=== PATIENT | male | born 1985 | race African-American/Black ===

== ENCOUNTER 2018-07-30 07:47 | Emergency (ER) | payer SELFPAY ==
[~2018-07-30] VITALS: Ht 170.2 cm; Wt 85.0 kg
[2018-07-30 08:05] VITALS: BP 145/89
[2018-07-30] MEDS ORDERED: DIPHENHYDRAMINE 50MG CAPSULE PO ONE (10:00)
[2018-07-30] MEDS ORDERED: FAMOTIDINE 20MG TABLET PO ONE (10:00)
== END 2018-07-30 10:36 | disposition home or self-care (01) ==
LOC: ER 08:08
DX: T78.49XA Other allergy, initial encounter (principal); H10.13 Acute atopic conjunctivitis, bilateral; F17.200 Nicotine dependence, unspecified, uncomplicated; X58.XXXA Exposure to other specified factors, initial encounter
CPT/HCPCS: 99282